=== PATIENT | male | born 1950 | race Caucasian/White ===

== ENCOUNTER 2018-04-24 07:32 | Emergency (ER) | payer MEDICARE ==
[2018-04-24 07:42] VITALS: BP 126/85; PULSE 62; RESP 18; TEMP 98.1
--- NOTE | 2018-04-24 08:03 | ED ---
General Adult HPI - General Chief complaint: Skin/Abscess/Foreign Body Stated complaint: Bug bite on Leg Time Seen by Provider: 04/24/18 07:51 Source: patient, RN notes reviewed Mode of arrival: ambulatory Limitations: no limitations - History of Present Illness Initial comments: 68-year-old male presents for an insect bite to the left leg. He states he was working outside around a fire pit and when he came inside and noticed an insect bite. He states it was itchy and red around it. He states that yesterday it was more red and more itchy and today it seems to be improving. He spoke with a neighbor who had Lyme's disease in the past and he said that he may want to get checked out so he decided to come in. He denies any fever or chills. He states the redness and itching has improved. He denies any other symptoms associated with this. Patient denies any pain or drainage from the area. Patient denies any recent fever, chills, shortness of breath, chest pain, back pain, abdominal pain, nausea vomiting, numbness or tingling, dysuria or hematuria, constipation or diarrhea, headaches or visual changes, or any other current symptoms. - Related Data Allergies Allergy/AdvReac Type Severity Reaction Status Date / Time ketoconazole Allergy Rash/Hives Verified 04/24/18 07:42 Review of Systems ROS Statement: Those systems with pertinent positive or pertinent negative responses have been documented in the HPI. ROS Other: All systems not noted in ROS Statement are negative. Past Medical History Past Medical History: GERD/Reflux Additional Past Medical History / Comment(s): Migraines History of Any Multi-Drug Resistant Organisms: None Reported Past Surgical History: Orthopedic Surgery Past Psychological History: No Psychological Hx Reported Smoking Status: Former smoker Past Alcohol Use History: Occasional Past Drug Use History: None Reported General Exam Limitations: no limitations General appearance: alert, in no apparent distress Neck exam: Present: normal inspection Respiratory exam: Present: normal lung sounds bilaterally. Absent: respiratory distress, wheezes, rales, rhonchi, stridor Cardiovascular Exam: Present: regular rate, normal rhythm, normal heart sounds. Absent: systolic murmur, diastolic murmur, rubs, gallop, clicks Extremities exam: Present: full ROM, normal capillary refill. Absent: tenderness, pedal edema, joint swelling, calf tenderness Neurological exam: Present: alert, oriented X3 Psychiatric exam: Present: normal affect, normal mood Skin exam: Present: warm, dry, intact, other (Patient does appear to have a small circular erythematous area to the lateral left lower leg. No fluctuance no induration. Not warm.) Course Vital Signs 04/24/18 07:40 Temperature 98.1 F Pulse Rate 62 Respiratory 18 Rate Blood Pressure 126/85 O2 Sat by Pulse 100 Oximetry Medical Decision Making - Medical Decision Making 68-year-old male presents with what is suspicious for an insect bite to the left lower extremity. There is small redness surrounding the area however it is not warm to the touch there is no fluctuance or induration. He states it's actually improved since yesterday. At this time we discussed that he can alternate Benadryl to help with itching as well as an anti-biotic ointment. We discussed what to look for if this worsens and when to return to the emergency department. Patient is in agreement this plan all questions have been answered. This time patient will be discharged. Disposition Clinical Impression: Insect bite of left leg Disposition: HOME SELF-CARE Condition: Stable Instructions: Insect Bite or Sting (ED) Additional Instructions: Please use medication as discussed. Please follow up with family doctor if symptoms have not improved over the next two days. Please return to the emergency room if your symptoms increase or worsen or for any other concerns. Continues Benadryl cream over the area to help with itching. Please apply an antibiotic ointment such as Neosporin to the area if you've noticed increased redness or any change to the area please follow up. Is patient prescribed a controlled substance at d/c from ED?: No Referrals: Rafael Lai MD [STAFF PHYSICIAN] - 1-2 days Time of Disposition: 08:02
== END 2018-04-24 08:13 | disposition home or self-care (01) ==
LOC: EC 07:32
DX: S80.862A Insect bite (nonvenomous), left lower leg, initial encounter (principal); Z88.8 Allergy status to other drugs, medicaments and biological substances; Z87.891 Personal history of nicotine dependence; W57.XXXA Bitten or stung by nonvenomous insect and other nonvenomous arthropods, initial encounter
CPT/HCPCS: 99282